=== PATIENT | female | born 1930 | race Caucasian/White ===

== ENCOUNTER 2018-05-04 22:07 | Inpatient (IN) | payer MEDICARE, BC ==
[2018-05-04 23:14] LABS: #Eosinphils 0.2 thou/uL (0.0-0.7); #Lymphocytes 1.7 thou/uL (1.20-3.40); #Monocytes 1.1 thou/uL (0.11-0.59); #Neutrophils 9.8 thou/uL (1.40-6.50); %Basophils 0.1 % (0.0-1.0); %Eosinophils 1.6 % (0.0-10.0); %Lymphocytes 12.9 % (21.0-51.0); %Monocytes 8.6 % (0.0-10.0); %Neutrophils 76.8 % (42.0-75.0); Hemoglobin 11.1 g/dL (12.0-16.0); Mean Corpuscular HGB CONC 31.9 g/dL (32.0-36.0); Mean Corpuscular Hemoglobin 29.4 pg (27.0-31.0); Mean Corpuscular Volume 92.2 fL (78.0-98.0); Mean Platelet Volume 6.6 fL (7.4-10.4); Platelet Count 293 thou/uL (130-400); RBC Distribution Width 11.9 % (11.5-14.5); Red Blood Cell (RBC) Count 3.79 mill/uL (4.20-5.40); White Blood Cell (WBC) Count 12.7 thou/uL (4.8-10.8)
[2018-05-04 23:35] LABS: ALT (SGPT) 15 U/L (8-55); AST (SGOT) 23 U/L (5-34); Albumin 3.8 g/dL (3.4-4.8); Alkaline Phosphatase 87 U/L (40-150); Anion Gap 11 mmol/L (10-20); BUN (Urea Nitrogen) 22 mg/dL (9.8-20.1); Bilirubin, Total 0.3 mg/dL (0.2-1.2); Calc. Creatinine Clearance 0 mL/min (70-130); Calcium 9.2 mg/dL (7.8-10.44); Carbon Dioxide 27 mmol/L (23-31); Chloride 105 mmol/L (98-107); Estimated GFR-MDRD 68; Globulin 3.2 g/dL (2.4-3.5); Glucose 131 mg/dL (83-110); Potassium 4.4 mmol/L (3.5-5.1); Sodium 139 mmol/L (136-145)
--- NOTE | 2018-05-04 23:44 | RAD ---
RIGHT KNEE THREE VIEWS: 05/04/18 HISTORY: Knee injury. Bones are demineralized. There is some mild arthritic changes in the knee without signs of fracture. There is a chondroid type lesion of the distal femoral shaft. This could represent an enchondroma. Th e size raises the possibility of a low grade chondrosarcoma. I do not have any old films for comparis on. IMPRESSION: 1. 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 2. No evidence of fracture. POS: [facility]
--- NOTE | 2018-05-04 23:45 | RAD ---
RIGHT HIP TWO VIEWS: 05/04/18 HISTORY: Fall with hip pain. There is an intertrochanteric fracture of the right hip with associated coxa vara deformity. Old trau ma to the symphysis region is noted. IMPRESSION: Acute intertrochanteric fracture of the right hip. POS: [facility]
[2018-05-05 00:26] LABS: PTT 30.9 SEC (22.9-36.1); Prothrombin Time 12.7 SEC (12.0-14.7)
[2018-05-05] MEDS ORDERED: Morphine 4 MG/ML VIAL ONE (00:39)
[2018-05-05] MEDS ORDERED: Ondansetron PF 4 MG/2 ML Vial ONE ×2 (00:39→15:02)
[2018-05-05] MEDS ORDERED: Morphine 4 MG/ML VIAL SLOW IVP PRN ×2 (01:42→01:55)
[2018-05-05] MEDS ORDERED: Ondansetron PF 4 MG/2 ML Vial IVP PRN ×2 (01:42→01:55)
[2018-05-05] MEDS ORDERED: Sodium Chloride 0.9% 1,000 ML IV SCH (01:45)
[2018-05-05] MEDS ORDERED: traMADol HCl 50 MG TAB PO PRN (01:52)
[2018-05-05] MEDS ORDERED: hydrALAZINE 20 MG/ML VIAL SLOW IVP PRN (01:55)
[2018-05-05] MEDS ORDERED: Ondansetron ODT 4 MG TAB PO PRN (01:55)
[2018-05-05] MEDS ORDERED: Dextrose 50% Abboject 50 ML SYRINGE SLOW IVP PRN (01:55)
[2018-05-05] MEDS ORDERED: Dextrose 5% in Water 1,000 ML IV PRN (01:55)
[2018-05-05 02:04] VITALS: BMI 19.5
[2018-05-05] MEDS: traMADol HCl 50 MG TAB PO SCH ×4 (02:44→20:08)
[2018-05-05 03:51] LABS: Bilirubin Negative (Negative); Blood, Urine Small (Negative); Clarity CLEAR (Clear); Glucose, Urine (Dipstick) Negative (Negative); Leukocyte Moderate (Negative); Nitrite Negative (Negative); Protein, Urine (Dipstick) Negative (Neg-Trace); Specific Gravity, Urine 1.015 (1.002-1.036); pH, Urine 6.5 (5.0-9.0)
[2018-05-05 03:54] LABS: Bacteria/HPF None Seen HPF (None Seen); Hyaline Casts/LPF 4-6 HYALINE CAST LPF (0-3 Hyaline); Pathc Cast-AUWi Flag 1.45 (0-2.49)
--- NOTE | 2018-05-05 03:54 | HP ---
ATTENDING SURGEON: Dr. Calhoun. HISTORY OF PRESENT ILLNESS: An 88-year-old female, had a ground-level fall. Te patient was in her kitchen and not using her walker like she was supposed to, and when she went to turn, slipped and fell. The patient reports right leg pain and right knee pain. Denies loss of consciousness. Denies hitting her head. The patient activated her medical alert immediately. The patient was brought in by EMS with right external rotation and shortening. The patient was evaluated by the ER. The patient with a right intertrochanteric fracture. The patient was given morphine and Zofran in the ER for pain. The patient currently resting supine in no distress. The patient's daughter is at bedside, who states that the patient does live alone and her just recently a few days ago. The patient has caretakers whom come and check on her often and the daughter lives very close by. The daughter does report that she does get confused sometimes. PAST MEDICAL HISTORY: Arthritis, high cholesterol, hypertension, hypothyroidism. The patient had a fall in 2015 with pelvic fracture nonoperative, the patient went to rehab at that time, also back injury nonoperative where she completed rehab. PAST SURGICAL HISTORY: . ALLERGIES: NO KNOWN DRUG ALLERGIES. HOME MEDICATIONS: 1. Acetaminophen 1 g daily. 2. Fosamax 70 mg weekly. 3. Aspirin 81 mg daily. 4. Lipitor 40 mg daily. 5. Atrovent as needed. 6. Celebrex 200 mg. 7. Flonase as needed. 8. Synthroid 75 mcg on Sunday through Sunday, 112 on Sunday. 9. Myrbetriq 50 mcg. 10. Zestril 5 mg p.o. daily. 11. Zoloft 100 mg daily. 12. Zantac twice a day 150. 13. Tylenol PM Extra Strength 2 nightly. 14. Zyrtec daily. 15. Vitamin D daily. REVIEW OF SYSTEMS: GENERAL: Denies any recent illness. Denies any chills or fever. HEENT: Denies any vision changes. Denies neck pain. CARDIOVASCULAR: Denies any chest pain or palpitations or previous cardiovascular history. RESPIRATORY: Denies any cough, shortness of breath, or wheezing. GI: Denies abdominal pain. Denies nausea, vomiting, or diarrhea. The patient does report issues with constipation. GI: Denies any dysuria or frequency. MUSCULOSKELETAL: Complaints of right knee pain and right thigh pain. Denies any back pain. NEUROLOGIC: Denies headache. Denies mental status changes. Denies sensory deficit changes. PHYSICAL EXAMINATION: VITAL SIGNS: Blood pressure 146/77, SpO2 93% on room air, heart rate 91, respirations 16, temperature 98.1. GENERAL: The patient is awake, alert, in no distress; oriented to person, place, and event. HEENT: The patient has a small abrasion under the nose, otherwise head is atraumatic. Pupils equal and reactive at 4 mm. NECK: Trachea is midline. The patient has no neck tenderness. She has full range of motion. SKIN: Skin is dry. No bruises or rashes noted. CARDIOVASCULAR: The patient with regular rate and rhythm. There are no murmurs. RESPIRATORY: Respirations even and unlabored. Chest is symmetrical. Equal breath sounds. There are no wheezes, crackles, or rales. ABDOMEN: Soft, nontender. Active bowel sounds. MUSCULOSKELETAL: The patient with right lower leg shortening and external rotation. Positive +2 pedal pulses bilaterally. The patient moves all extremities and sensation noted in all extremities. The patient does have a small abrasion to the right knee. There is no deformity noted to the knee or swelling. NEUROLOGIC: Cranial nerves are intact. Sensation and strength, intact. LABORATORY DATA: WBC 12.7, RBC 3.79, hemoglobin 11.1, hematocrit 35.0, platelets 293. PT 12.7, INR 1.0, aPTT 30.9. Sodium 139, potassium 4.4, chloride 105, BUN 22, creatinine 0.80, glucose 131, calcium 9.2. AST 23, ALT 15, alkaline phosphatase 87. Troponin less than 0.010. Albumin 7.0. A UA was collected that has not resulted at this time. DIAGNOSTIC DATA: Acute intertrochanteric fracture of the right hip. Chest x-ray, mildly hyperinflated lungs, no acute cardiopulmonary process. Official read is unavailable. EKG shows normal sinus rhythm. There is no ST elevation. ASSESSMENT: 1. Mechanical fall. 2. Acute traumatic pain. 3. Right hip fracture. 4. History of arthritis. 5. History of hypertension. PLAN: We will admit the patient to the Surgical/Ortho Floor. Dr. Perez has already been contacted by the ER provider and was notified. We will take the patient to the OR in the morning. No specific time reported. We will place the patient on pain regimen and bedrest. The patient has been n.p.o. since [address] PT/OT consult, also prepare for placement to rehab. This patient has been discussed with the attending physician. Job ID: [id number]
[2018-05-05 04:04] LABS: Renal Epithelial None Seen HPF (0-3); Transitional Epithelial 0-3 HPF (0-3)
[2018-05-05] MEDS: Lactated Ringer's 1,000 ML IV SCH ×2 (04:07→15:59)
[2018-05-05] MEDS: Acetaminophen 1,000 MG in Premix Bag 1 BAG IVPB SCH ×4 (05:40→23:57)
[2018-05-05] MEDS: Ketorolac Tromethamine 30 MG/ML VIAL IVP SCH ×3 (05:40→17:35)
[2018-05-05 06:28] LABS: #Lymphocytes 1.2 thou/uL (1.20-3.40); #Monocytes 0.9 thou/uL (0.11-0.59); #Neutrophils 8.6 thou/uL (1.40-6.50); %Eosinophils 0.3 % (0.0-10.0); %Lymphocytes 11.3 % (21.0-51.0); %Monocytes 8.6 % (0.0-10.0); %Neutrophils 79.8 % (42.0-75.0); Hemoglobin 10.1 g/dL (12.0-16.0); Mean Corpuscular HGB CONC 33.1 g/dL (32.0-36.0); Mean Corpuscular Hemoglobin 30.4 pg (27.0-31.0); Platelet Count 249 thou/uL (130-400); RBC Distribution Width 11.7 % (11.5-14.5); Red Blood Cell (RBC) Count 3.32 mill/uL (4.20-5.40); White Blood Cell (WBC) Count 10.7 thou/uL (4.8-10.8)
[2018-05-05 06:45] LABS: Anion Gap 12 mmol/L (10-20); BUN (Urea Nitrogen) 21 mg/dL (9.8-20.1); Calc. Creatinine Clearance 46 mL/min (70-130); Calcium 8.7 mg/dL (7.8-10.44); Carbon Dioxide 21 mmol/L (23-31); Chloride 106 mmol/L (98-107); Estimated GFR-MDRD 79; Glucose 122 mg/dL (83-110); Potassium 4.4 mmol/L (3.5-5.1); Sodium 135 mmol/L (136-145)
[2018-05-05] MEDS: Famotidine 20 MG TAB PO SCH ×2 (08:30→20:08)
[2018-05-05] MEDS: Polyethylene Glycol 3350 17 GM Packet PO SCH (08:31)
[2018-05-05] MEDS: Senokot S 8.6-50 MG TAB PO SCH ×2 (08:31→20:08)
[2018-05-05] MEDS ORDERED: Fentanyl 100 MCG/2 ML VIAL ONE (08:41)
[2018-05-05] MEDS ORDERED: Tranexamic Acid 1,000 MG/10 ML VIAL ONE (09:04)
[2018-05-05] MEDS ORDERED: CEFAZOLIN 2 GM/50 ML BAG ONE (09:04)
[2018-05-05] MEDS ORDERED: Sodium Chloride 0.9% 100 ML ONE (09:07)
[2018-05-05] MEDS ORDERED: Levofloxacin 500 mg/D5W 100 ml Premix Bag ONE (09:18)
--- NOTE | 2018-05-05 09:21 | RAD ---
PORTABLE CHEST 1 VIEW: Date: 05/05/18 Time: 0011 hours HISTORY: Chest pain. FINDINGS: Comparison made with exam of 05/26/15. The heart size is normal. The aorta is tortuous. No lobar consolidation, pneumothoraces, nikhil pulmon alisia edema, or pleural effusions are seen. IMPRESSION: No acute process. POS: [facility]
--- NOTE | 2018-05-05 09:25 | RAD ---
FRONTAL RADIOGRAPH PELVIS: Date: 05/05/18 COMPARISON: 07/26/15. HISTORY: Injury, trauma, pain. FINDINGS: There are severe degenerative changes involving bilateral hips with joint space narrowing, subchondra l sclerosis, and osteophyte formation. There are old fractures of the superior and inferior pubic shila i medially bilaterally, and there are multiple incompletely assessed lower lumbar spine fractures, al so which appear stable. There is a new, comminuted, obliquely oriented fracture of the proximal right femur, which is probably subtrochanteric in nature and incompletely assessed on this examination. Th e lesser trochanter appears proximally and medially displaced, and the distal fracture fragment demon strates varus angulation. IMPRESSION: Proximal right femur fracture. POS: [facility]
--- NOTE | 2018-05-05 11:40 | CON ---
DATE OF CONSULTATION: 05/05/2018 CHIEF COMPLAINT: Right hip pain. CONSULTING PHYSICIANS: ER. HISTORY OF PRESENT ILLNESS: Ms. Iqbal is an 88-year-old female, status post fall while walking in her house. Denies loss of conscious or headaches. The patient got up without her walker, slipped and fell on her right hip and complained of right hip pain. The patient's family is at bedside. She lives at home alone with the recent of her . The patient's caretakers are close by. PAST MEDICAL HISTORY: Arthritis, high cholesterol, hypertension, hypothyroidism , history of pelvis fracture. PAST SURGICAL HISTORY: . ALLERGIES: NO KNOWN DRUG ALLERGIES. MEDICATIONS: 1. Tylenol. 2. Fosamax. 3. Aspirin. 4. Lipitor. 5. Atrovent. 6. Celebrex. 7. Flonase. 8. Synthroid. 9. Myrbetriq. 10. Zestril. 11. Zoloft. 12. Zantac. 13. Tylenol p.m. 14. Zyrtec. 15. Vitamin D. SOCIAL HISTORY: Nonsmoker and nondrinker. Recent passing of her . REVIEW OF SYSTEMS: Noncontributory. PHYSICAL EXAMINATION: VITAL SIGNS: The patient's vital signs are; temperature 97.9, pulse rate 100, respiratory rate 18, 92% on room air, and blood pressure 145/76. GENERAL: Alert and oriented female, in no acute distress. EXTREMITIES: Right lower extremity, no skin lesions. External rotated hip with shortening. The patient has brisk cap refill. She has sensation intact L4 through S1 distribution in plantar flexion, dorsiflexion, extendsand flexes her toes. She has pain with internal and external rotation. LABORATORY DATA: The patient's labs show H and H of 10 and 30. INR of 1. She has creatinine of 0.7. She has moderate leukocyte esterase. RADIOGRAPHIC DATA: The patient's radiographs show a right intertrochanteric hip fracture with reverse obliquity pattern. IMPRESSION: Right intertrochanteric hip fracture. ASSESSMENT AND PLAN: The patient was taken the OR today for a right intramedullary nailing with cephalomedullary nail. Discussed with family the risks and benefits of surgery, pain, scar, bleeding, infection, damage to vital structures, nonunion, malunion, failure of procedure, fracture, loss of life or limb. She understands the risks and benefits and understands, she will loose her level of function. I discussed with them the mortality associated with this fracture. The family understands all this and they would like to proceed. We will take her to surgery today. Job ID: [id number] MTDD
[2018-05-05] MEDS ORDERED: CEFAZOLIN/Water 2 GM/20 ML SYRINGE SLOW IVP SCH (13:24)
[2018-05-05] MEDS ORDERED: Glycopyrrolate 0.2 MG/ML 5 ML SYRINGE ONE (15:02)
[2018-05-05] MEDS ORDERED: PROPOFOL 200 MG/20 ML VIAL ONE (15:02)
[2018-05-05] MEDS ORDERED: Lidocaine 1% PF 5 ML VIAL ONE (15:02)
[2018-05-05] MEDS: CEFAZOLIN 2 GM/50 ML-DEXTROSE 2 GM in Premix Bag 1 BAG IVPB SCH (17:56)
[2018-05-05] MEDS: Nitrofurantoin Monohyd/M-Cryst 100 MG CAP PO SCH (20:08)
--- NOTE | 2018-05-05 21:22 | PRG ---
DATE OF SERVICE: 05/05/2018 SUBJECTIVE: An 88-year-old female with ground level fall. Postop day zero. The patient is awake, alert. Pain is well controlled at this time. The patient is tolerating a regular diet at this time. The patient voices no concerns other than she typically takes 2 Tylenol PM for sleep. OBJECTIVE: VITAL SIGNS: Temperature 97.9, pulse 76, respirations 16, SpO2 of 95% on room air. Blood pressure 126/60. GENERAL: The patient awake, alert, in no distress. RESPIRATORY: Respirations even, nonlabored, symmetrical, no distress. ABDOMEN: Soft, nontender. Active bowel sounds. MUSCULOSKELETAL: Mild pain to right hip area. Positive distal pulses and sensation. Able to move all extremities. NEUROLOGIC: Cranial nerves intact. The patient has normal strength. LABORATORY DATA: WBC 10.7, RBC 3.32, hemoglobin 10.1, hematocrit 30.5, platelets 249. Sodium 135, potassium 4.4, chloride 106, CO2 of 21, BUN 21, creatinine 0.70, GFR 79, glucose 122, calcium 8.7. The patient with trace ketones in her urine, moderate leukocyte esterase, urine wbc's 7 to 10, squamous cells high. The patient with Hyaline cast. ASSESSMENT AND PLAN: 1. Ground level fall. 2. Right hip fracture, postop day zero open reduction and internal fixation. 3. Acute traumatic pain. 4. History of arthritis and hypertension. 5. Urinary tract infection. PLAN: We will leave Rodriguez overnight and monitor urine output. We will continue IV fluids overnight. We will place the patient on a p.o. pain regimen. PT/OT has been consulted and will work with the patient starting tomorrow. Continue a regular diet. We will order melatonin for sleep instead of Tylenol PM that the patient usually takes since the patient is getting pain medication and Tylenol already. The patient started on antibiotics for UTI. Plan has been discussed with the attending surgeon. Job ID: [id number]
[2018-05-05] MEDS: Ibuprofen 600 MG TAB PO SCH (21:28)
[2018-05-05] MEDS: Melatonin 3 MG TAB PO PRN (21:28)
--- NOTE | 2018-05-05 22:49 | OP ---
DATE OF PROCEDURE: 05/05/2018 PREOPERATIVE DIAGNOSIS: Right intertrochanteric with subtrochanteric extension 4-part proximal femur fracture. PROCEDURE: Cephallomedullary nailng, TFNA POCKETS AND PIECES NECKTIE OPERATOR: Dylan. ANESTHESIA: Rogelio. The patient received a general endotracheal intubation. ESTIMATED BLOOD LOSS: 100 mL. TOURNIQUET TIME: None. IMPLANTS: Synthes 11 x 130-degree x 400 mm TFNA nail, a 95 mm TFNA screw, and a 5 mm distal locking screw. ANTIBIOTICS: Ancef 2 g, 500 mg of Levaquin, and TXA 1 g. COMPLICATIONS: None. INDICATIONS FOR PROCEDURE: Ms. Iqbal is a pleasant 88-year-old female, status post ground level fall with a right proximal femur fracture and subtrochanteric extension. I discussed the risks and benefits of surgery, pain, scar, bleeding, infection, damage to vital structures, decreased range of motion and strength, continued pain despite surgical intervention, loss of life or limb, and failure of procedure. The patient understood all these risks and benefits and elected to proceed. DESCRIPTION OF PROCEDURE: Time-out was performed. The patient's right lower extremity as the operative site based on site, consents, and markings. After time-out, the patient's right leg was put in traction. I made a posterior oblique incision just proximal to the greater tip down to the greater trochanter, felt based on AP and lateral radiographs, the [id number]. We then placed our starting point. We then opened the reamer and reamed with opening reamer. We then passed our guidewire. Noticed that there was a little apex anterior deformity, which made a small stab incision and used a Librado to push down the anterior fragment wall for reduction for reaming. We went distally. 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 We therefore used a finger to help to push through the enchondroma and placed it more in a center-center position. After placing it in center-center position, we reamed up to an 11, felt we got good overall alignment and positioning. We then removed, placed our implant and after it measured 11 x 400, felt we had a good stable positioning. It helped to reduce the fracture. Testing our position, got the gripping of the metaphysis when we reamed, measured for 95 and placed 95. We compressed and down to allow for sliding. We let the traction off the femur. We then took pictures. We were happy with the alignment of the proximal femur. We moved distally. We placed a distal screw in the static position with two cortices, and we made a small stab incision. We came back. We washed and closed all the holes for screws as well as our stab incision and our entry nails, positioned with O2 and claudia. The patient will be admitted to the hospital. She will receive antibiotics for 24 hours. She will be weightbearing as tolerated. We will follow inhouse. Job ID: [id number] MTDD
[2018-05-06] MEDS: Lactated Ringer's 1,000 ML IV SCH
[2018-05-06] MEDS: traMADol HCl 50 MG TAB PO SCH ×3 (02:30→17:08)
[2018-05-06] MEDS: CEFAZOLIN 2 GM/50 ML-DEXTROSE 2 GM in Premix Bag 1 BAG IVPB SCH (02:31)
[2018-05-06] MEDS: Ibuprofen 600 MG TAB PO SCH ×3 (05:59→21:13)
[2018-05-06] MEDS: Acetaminophen 1,000 MG in Premix Bag 1 BAG IVPB SCH (05:59)
[2018-05-06 06:40] LABS: Anion Gap 9 mmol/L (10-20); BUN (Urea Nitrogen) 22 mg/dL (9.8-20.1); Calc. Creatinine Clearance 37 mL/min (70-130); Calcium 8.5 mg/dL (7.8-10.44); Carbon Dioxide 25 mmol/L (23-31); Chloride 104 mmol/L (98-107); Estimated GFR-MDRD 61; Glucose 114 mg/dL (83-110); Magnesium 1.7 mg/dL (1.6-2.6); Phosphorus 3.5 mg/dL (2.3-4.7); Potassium 4.1 mmol/L (3.5-5.1); Sodium 134 mmol/L (136-145)
[2018-05-06 07:35] LABS: Hemoglobin 6.9 g/dL (12.0-16.0); Mean Corpuscular HGB CONC 32.8 g/dL (32.0-36.0); Mean Corpuscular Hemoglobin 30.4 pg (27.0-31.0); Mean Corpuscular Volume 92.6 fL (78.0-98.0); Platelet Count 203 thou/uL (130-400); RBC Distribution Width 11.6 % (11.5-14.5); Red Blood Cell (RBC) Count 2.28 mill/uL (4.20-5.40); White Blood Cell (WBC) Count 7.3 thou/uL (4.8-10.8)
[2018-05-06] MEDS: Nitrofurantoin Monohyd/M-Cryst 100 MG CAP PO SCH ×2 (08:40→21:13)
[2018-05-06] MEDS: Famotidine 20 MG TAB PO SCH ×2 (08:41→21:13)
[2018-05-06] MEDS: Polyethylene Glycol 3350 17 GM Packet PO SCH (08:41)
[2018-05-06] MEDS: Senokot S 8.6-50 MG TAB PO SCH ×2 (08:41→21:14)
--- NOTE | 2018-05-06 08:57 | RAD ---
RIGHT HIP 2 VIEWS: Date: 05/05/18 HISTORY: Open reduction and internal fixation right hip, right femur fracture. FINDINGS/IMPRESSION: Three spot fluoroscopic intraoperative images of the right hip demonstrating interval reduction and i nternal fixation of the proximal femoral fracture since the previous day's exam. POS: [facility]
[2018-05-06] MEDS ORDERED: Alendronate Sodium 70 mg Tablet PO SCH (09:30)
[2018-05-06] MEDS ORDERED: Levothyroxine Sodium 112 MCG TAB PO SCH (11:00)
[2018-05-06] MEDS: Acetaminophen 500 MG TAB PO SCH ×2 (12:16→18:01)
--- NOTE | 2018-05-06 18:02 | PRG ---
DATE OF SERVICE: 05/06/2018 SUBJECTIVE: This is an 88-year-old female with a ground level fall. She is postop day #1, status post ORIF of the right hip. The patient is awake and alert in bed, and pain is well controlled at this time. The patient continues to tolerate a regular diet. The patient voices no concerns at this time. OBJECTIVE: VITAL SIGNS: Temperature 98.5, respirations 16, SpO2 96% on room air, and blood pressure 110/60. GENERAL: The patient is awake, alert, sitting up in bed, in no distress. RESPIRATORY: Respirations even nonlabored, symmetrical, no distress. ABDOMEN: Soft, nontender. Active bowel sounds. MUSCULOSKELETAL: Moves all extremities. Distal pedal pulses. Normal sensation. NEUROLOGIC: No deficits noted. LABORATORY DATA: White blood count 7.3, RBC 2.28, hemoglobin 6.9, hematocrit 21.1, and platelet 203. Sodium 134, potassium 4.1, chloride 104, CO2 25, BUN 22, creatinine 0.87, GFR 61, glucose 114, calcium 8.5, phosphorus 3.5, and magnesium 1.7. ASSESSMENT: 1. Ground level fall. 2. Right hip fracture, postop day 1 open reduction and internal fixation. 3. Acute traumatic pain. 4. History of arthritis and hypertension. 5. Urinary tract infection. PLAN: We will transfuse 1 unit of packed red blood cells. The patient started on iron and vitamin C. We will repeat H and H this evening. Continue the patient's Macrobid for UTI. Continue PT/OT. Case Management to help with placement and rehab. We will continue the patient's pain regimen. The patient has been discussed with the attending surgeon. Job ID: [id number]
[2018-05-06 18:07] LABS: Hemoglobin 9.1 g/dL (12.0-16.0)
[2018-05-06] MEDS ORDERED: Non-Formulary Item 1 EACH (Zantac 150 MG) PO SCH (21:00)
[2018-05-06] MEDS: Ascorbic Acid 500 mg Chewable Tablet PO SCH (21:13)
[2018-05-06] MEDS: Magnesium Oxide 400 MG TAB PO SCH (21:14)
[2018-05-06] MEDS: Melatonin 3 MG TAB PO PRN (22:03)
[2018-05-07] MEDS: Acetaminophen 500 MG TAB PO SCH ×4 (00:05→17:45)
[2018-05-07] MEDS: Levothyroxine Sodium 75 MCG TAB PO SCH (05:26)
[2018-05-07] MEDS: Ibuprofen 600 MG TAB PO SCH ×3 (05:26→21:08)
[2018-05-07 05:57] LABS: #Eosinphils 0.5 thou/uL (0.0-0.7); #Lymphocytes 1.6 thou/uL (1.20-3.40); #Monocytes 0.8 thou/uL (0.11-0.59); #Neutrophils 3.6 thou/uL (1.40-6.50); %Basophils 0.7 % (0.0-1.0); %Eosinophils 7.5 % (0.0-10.0); %Monocytes 12.7 % (0.0-10.0); Hemoglobin 8.5 g/dL (12.0-16.0); Mean Corpuscular HGB CONC 33.6 g/dL (32.0-36.0); Mean Corpuscular Volume 92.3 fL (78.0-98.0); Mean Platelet Volume 7.2 fL (7.4-10.4); Platelet Count 186 thou/uL (130-400); RBC Distribution Width 11.8 % (11.5-14.5); Red Blood Cell (RBC) Count 2.73 mill/uL (4.20-5.40); White Blood Cell (WBC) Count 6.5 thou/uL (4.8-10.8)
[2018-05-07 06:18] LABS: Anion Gap 10 mmol/L (10-20); BUN (Urea Nitrogen) 16 mg/dL (9.8-20.1); Calc. Creatinine Clearance 47 mL/min (70-130); Calcium 8.4 mg/dL (7.8-10.44); Carbon Dioxide 25 mmol/L (23-31); Chloride 108 mmol/L (98-107); Estimated GFR-MDRD 81; Glucose 95 mg/dL (83-110); Magnesium 1.8 mg/dL (1.6-2.6); Phosphorus 2.9 mg/dL (2.3-4.7); Sodium 139 mmol/L (136-145)
[2018-05-07] MEDS: Polyethylene Glycol 3350 17 GM Packet PO SCH (08:53)
[2018-05-07] MEDS: Fluticasone Propionate Nasal Spray 16 gm Bottle NASAL SCH (08:53)
[2018-05-07] MEDS: Senokot S 8.6-50 MG TAB PO SCH ×2 (08:54→20:15)
[2018-05-07] MEDS: Ascorbic Acid 500 mg Chewable Tablet PO SCH ×2 (08:54→20:14)
[2018-05-07] MEDS: Magnesium Oxide 400 MG TAB PO SCH ×2 (08:54→20:14)
[2018-05-07] MEDS: Atorvastatin Calcium 40 MG TAB PO SCH (08:54)
[2018-05-07] MEDS: Lisinopril 5 MG TAB PO SCH (08:54)
[2018-05-07] MEDS: Famotidine 20 MG TAB PO SCH ×2 (08:54→20:14)
[2018-05-07] MEDS: Ferrous Sulfate 325 MG TAB PO SCH ×2 (08:54→17:46)
[2018-05-07] MEDS: Nitrofurantoin Monohyd/M-Cryst 100 MG CAP PO SCH ×2 (08:54→20:15)
--- NOTE | 2018-05-07 14:23 | PRG ---
DATE OF SERVICE: 05/07/2018 SUBJECTIVE: The patient is status post open reduction and internal fixation of a right hip fracture. She is currently postop day #2. She has had no issues overnight. States her pain is controlled. She is tolerating a diet. The patient did receive 1 unit of packed red blood cells yesterday for hemoglobin of 6.9. The patient has worked briefly with physical therapy today and is expected to work again this afternoon. PHYSICAL EXAMINATION: VITAL SIGNS: Temperature is 98.4, heart rate 90, blood pressure 174/77, respirations 14, oxygen saturation 93% on room air. GENERAL: The patient is resting comfortably in bed. She is awake, alert, oriented, and appropriate. HEENT: Unremarkable. LUNGS: Clear to auscultation with good inspiratory and expiratory effort. HEART: Regular rate and rhythm. ABDOMEN: Soft, flat, nontender with active bowel sounds. EXTREMITIES: Neurovascularly intact x4. LABORATORY FINDINGS: White blood cell count 6.5, hemoglobin 8.5, hematocrit 25.2, platelets 186. Sodium 139, potassium 4.0, chloride 108, CO2 of 25, BUN 16, creatinine 0.68, glucose 95, magnesium 1.8. Phosphorus 2.9. There are no radiographs reviewed this morning. ASSESSMENT: 1. Status post ground level fall. 2. Status post open reduction and internal fixation of right hip fracture. PLAN: Plan will be to continue supportive care, physical and occupational therapy. Repeat labs one more time tomorrow. Work with Case Management on placement, and the patient is also under treatment for a urinary tract infection, which should complete her course of antibiotics during this hospital stay. The evaluation and examination were done with Dr. Calhoun during rounds this morning. Job ID: [id number]
[2018-05-07] MEDS: Melatonin 3 MG TAB PO PRN (20:15)
--- NOTE | 2018-05-07 22:42 | HP ---
CHIEF COMPLAINT: Right hip pain. HISTORY OF PRESENT ILLNESS: Ms. Iqbal is an 88-year-old woman, who fell at home, landing on her right side. She had an intertrochanteric right femur fracture underwent ORIF by Orthopedics last night and I saw the patient on morning rounds with Stefan Kumar, Trauma PA and Verna Pruitt, Trauma Nurse Practitioner. For full details, please see Sonal's note, the details of which I have confirmed. The patient denies any lightheadedness or dizziness preceding her fall and states that she simply lost her footing because she slipped and was not using her walker. She denies loss of consciousness or amnesia to the event. She does live alone and her family reports some episodes of confusion. She has multiple medical problems, which are managed on medication and her long list of medications was reviewed. REVIEW OF SYSTEMS: Negative except for right hip pain, which she states is much better than it was before the surgery. Labs and x-rays are reviewed and I agree with the written report. ASSESSMENT: Status post repair of right intertrochanteric femur fracture. The patient is doing well overall and needs to work with Physical Therapy. She does live alone since her recently and may need placement at least for short-term rehab or possibly snf placement depending on her functional status. She is quite frail and did receive 1 unit transfusion for a postoperative hemoglobin of 6.9. Other labs were stable. We will watch her carefully over the next few days as she recovers and get her up to work with Physical Therapy as soon as possible. Job ID: [id number]
[2018-05-08] MEDS: Acetaminophen 500 MG TAB PO SCH ×5 (00:01→23:40)
[2018-05-08] MEDS: Ibuprofen 600 MG TAB PO SCH ×3 (05:15→21:10)
[2018-05-08] MEDS: Levothyroxine Sodium 75 MCG TAB PO SCH (05:15)
[2018-05-08 06:30] LABS: #Eosinphils 0.4 thou/uL (0.0-0.7); #Lymphocytes 1.4 thou/uL (1.20-3.40); #Monocytes 0.9 thou/uL (0.11-0.59); #Neutrophils 4.6 thou/uL (1.40-6.50); %Basophils 0.2 % (0.0-1.0); %Eosinophils 5.2 % (0.0-10.0); %Lymphocytes 19.6 % (21.0-51.0); %Monocytes 12.1 % (0.0-10.0); Hemoglobin 8.8 g/dL (12.0-16.0); Mean Corpuscular HGB CONC 33.4 g/dL (32.0-36.0); Mean Corpuscular Hemoglobin 30.8 pg (27.0-31.0); Mean Platelet Volume 6.7 fL (7.4-10.4); Platelet Count 232 thou/uL (130-400); RBC Distribution Width 11.8 % (11.5-14.5); Red Blood Cell (RBC) Count 2.87 mill/uL (4.20-5.40); White Blood Cell (WBC) Count 7.2 thou/uL (4.8-10.8)
[2018-05-08] MEDS: Polyethylene Glycol 3350 17 GM Packet PO SCH (08:34)
[2018-05-08] MEDS: Famotidine 20 MG TAB PO SCH ×2 (08:34→21:09)
[2018-05-08] MEDS: Ferrous Sulfate 325 MG TAB PO SCH ×2 (08:35→17:44)
[2018-05-08] MEDS: Ascorbic Acid 500 mg Chewable Tablet PO SCH ×2 (08:35→21:10)
[2018-05-08] MEDS: Atorvastatin Calcium 40 MG TAB PO SCH (08:35)
[2018-05-08] MEDS: Magnesium Oxide 400 MG TAB PO SCH ×2 (08:35→21:09)
[2018-05-08] MEDS: Senokot S 8.6-50 MG TAB PO SCH ×2 (08:35→21:10)
[2018-05-08] MEDS: Lisinopril 5 MG TAB PO SCH (08:36)
[2018-05-08] MEDS: Nitrofurantoin Monohyd/M-Cryst 100 MG CAP PO SCH ×2 (08:36→21:09)
[2018-05-08] MEDS: Fluticasone Propionate Nasal Spray 16 gm Bottle NASAL SCH (08:36)
--- NOTE | 2018-05-08 15:49 | PRG ---
DATE OF SERVICE: 05/08/2018 SUBJECTIVE: The patient remains on the surgical floor. She is status post ground level fall, in which she sustained a right hip fracture. She has undergone open reduction and internal fixation of same. She is currently postop day #3. The patient had an episode of emesis this morning when trying to work with physical therapy. She is also noted to have not had her Rodriguez removed, so we will have this discontinued this morning. Otherwise, the patient had no issues overnight. We are awaiting final determination of placement. PHYSICAL EXAMINATION: VITAL SIGNS: Temperature is 98.3, heart rate 97, blood pressure 151/88, respirations 16, oxygen saturation 93% on room air. GENERAL: The patient is currently sleeping. Her daughter relays that she was awake and alert when she was working with therapy and then had her bout of emesis. She was put back in the bed and has been resting since then. Of note, prior to this dictation, nurses relayed that the patient was able to be up in the chair at bedside for approximately 30 to 45 minutes. HEENT: Unremarkable. LUNGS: Clear to auscultation. HEART: Regular rate and rhythm. ABDOMEN: Soft and nondistended with active bowel sounds. EXTREMITIES: Neurovascularly intact x4. Postop dressing is clean, dry, and intact. LABORATORY FINDINGS: White blood cell count 7.2, hemoglobin 8.8, hematocrit 26.4, platelets 232. Sodium 139, potassium 4.0, chloride 108, CO2 of 25, BUN 16, creatinine 0.68, glucose 95, magnesium 1.8, phosphorus 2.9. There are no radiographs reviewed this morning. ASSESSMENT: 1. Status post ground level fall. 2. Status post open reduction and internal fixation of right hip fracture. PLAN: Plan will be to continue supportive care, physical and occupational therapy and await final placement decision, who will discontinue the Rodriguez this afternoon and also add lactulose to her bowel regimen. Job ID: [id number]
[2018-05-08] MEDS: Melatonin 3 MG TAB PO PRN (21:10)
[2018-05-09] MEDS: Ibuprofen 600 MG TAB PO SCH (05:06)
[2018-05-09] MEDS: Levothyroxine Sodium 75 MCG TAB PO SCH (05:06)
[2018-05-09] MEDS: Acetaminophen 500 MG TAB PO SCH ×2 (05:06→11:04)
[2018-05-09] MEDS: Atorvastatin Calcium 40 MG TAB PO SCH (09:19)
[2018-05-09] MEDS: Polyethylene Glycol 3350 17 GM Packet PO SCH (09:19)
[2018-05-09] MEDS: Senokot S 8.6-50 MG TAB PO SCH (09:20)
[2018-05-09] MEDS: Magnesium Oxide 400 MG TAB PO SCH (09:20)
[2018-05-09] MEDS: Ferrous Sulfate 325 MG TAB PO SCH (09:20)
[2018-05-09] MEDS: Ascorbic Acid 500 mg Chewable Tablet PO SCH (09:20)
[2018-05-09] MEDS: Lisinopril 5 MG TAB PO SCH (09:20)
[2018-05-09] MEDS: Famotidine 20 MG TAB PO SCH (09:21)
[2018-05-09] MEDS: Fluticasone Propionate Nasal Spray 16 gm Bottle NASAL SCH (09:21)
[2018-05-09 10:53] VITALS: BP 149/78; TEMP 98.3
--- NOTE | 2018-05-09 19:58 | DIS ---
DATE OF ADMISSION: 05/05/2018 DATE OF DISCHARGE: 05/09/2018 ADMISSION DIAGNOSES: 1. Status post fall. 2. Right hip fracture. CONSULTATIONS: Orthopedics, Dr. Perez. PROCEDURE: Cephalomedullary nailing, TFNA. SUMMARY: The patient is an 88-year-old woman, who reportedly had a fall at home, was brought to the emergency department, underwent evaluation and examination and was noted to have the above injury. The patient will be taken to the operating room the following day with Dr. Perez to undergo her above procedure, which she tolerated well. Over the next few days, she would work with Physical and Occupational Therapy and will be progressing slowly and also had a delay in her stay here due to the holidays, but was eventually able to be transferred to [facility] to continue care. At the time of discharge, the patient again was working with Physical and Occupational Therapy. Her pain was controlled. She was tolerating a diet. Her bowel and bladder function had returned. The patient will follow up with Dr. Perez in 2 weeks or sooner as needed. The patient may follow up with the Trauma Clinic if needed. Job ID: [id number]
[2018-05-09] MEDS ORDERED: Aspirin 81 mg Enteric Coated Tablet PO SCH (21:00)
--- NOTE | 2018-05-10 15:35 | EKG ---
Test Reason : Blood Pressure : / mmHG Vent. Rate : 087 BPM Atrial Rate : 085 BPM P-R Int : 000 ms QRS Dur : 078 ms QT Int : 380 ms P-R-T Axes : 000 009 -12 degrees QTc Int : 457 ms Accelerated Junctional rhythm Abnormal ECG Confirmed by SINDY PAIGE ([id number]), market editor SANTOS STOLL ([id number]) on 05/10/2018 3:34:52 PM Referred By: Confirmed By:SINDY PAIGE
== END 2018-05-09 11:32 | DRG 481 ==
LOC: ERS 22:07 → SURG A 05-05 00:36
PROVIDERS: ADMIT Surgery; ATTEND Surgery
PROC: 0QS606Z Reposition Right Upper Femur with Intramedullary Internal Fixation Device, Open Approach (ICD-10-PCS; principal; 2018-05-05)
DX: S72.141A Displaced intertrochanteric fracture of right femur, initial encounter for closed fracture (principal); N39.0 Urinary tract infection, site not specified; W19.XXXA Unspecified fall, initial encounter; Y92.009 Unspecified place in unspecified non-institutional (private) residence as the place of occurrence of the external cause; M19.90 Unspecified osteoarthritis, unspecified site; I10 Essential (primary) hypertension; E03.9 Hypothyroidism, unspecified; E78.00 Pure hypercholesterolemia, unspecified; Z79.82 Long term (current) use of aspirin
CPT/HCPCS: 36415; 36430; 71045; 72170; 76001; 80048; 80053; 81003; 81015; 83735; 84100; 84484; 85025; 85027; 85610; 85730; 86850; 86900; 86901; 87086; 93005; 96374; 96375; C1713; C1769; G8978-GP-CM; G8979-GP-CK; G8987-GO-CL; G8988-GO-CJ; J0131; J1885; J1956; J2001; J2270; J2405; J2704; J3010; J7050; P9016

== ENCOUNTER 2018-08-14 09:28 | Emergency (ER) | payer MEDICARE, BC ==
[2018-08-14 10:24] LABS: Bilirubin Negative (Negative); Blood, Urine Negative (Negative); Clarity CLOUDY (Clear); Glucose, Urine (Dipstick) Negative (Negative); Leukocyte Large (Negative); Nitrite Negative (Negative); Protein, Urine (Dipstick) Negative (Neg-Trace); Specific Gravity, Urine 1.009 (1.002-1.036); Urobilinogen 0.2 mg/dL (0.2-1.0); pH, Urine 6.5 (5.0-9.0)
[2018-08-14 10:26] LABS: Hyaline Casts/LPF 4-6 HYALINE CAST LPF (0-3 Hyaline); Pathc Cast-AUWi Flag 0.68 (0-2.49); RBC/HPF 0-3 HPF (0-3); Squamous Epithelial None Seen HPF (0-3)
[2018-08-14 10:41] LABS: Bacteria/HPF 2+ HPF (None Seen); Yeast-All Forms None Seen HPF (None Seen)
[2018-08-14 10:44] LABS: #Eosinphils 0.1 thou/uL (0.0-0.7); #Lymphocytes 1.4 thou/uL (1.20-3.40); #Monocytes 0.6 thou/uL (0.11-0.59); #Neutrophils 4.4 thou/uL (1.40-6.50); %Basophils 0.7 % (0.0-1.0); %Eosinophils 1.7 % (0.0-10.0); %Lymphocytes 20.6 % (21.0-51.0); %Monocytes 9.6 % (0.0-10.0); %Neutrophils 67.5 % (42.0-75.0); Hemoglobin 12.7 g/dL (12.0-16.0); Mean Corpuscular HGB CONC 32.5 g/dL (32.0-36.0); Mean Corpuscular Hemoglobin 30.7 pg (27.0-31.0); Mean Corpuscular Volume 94.5 fL (78.0-98.0); Mean Platelet Volume 6.7 fL (7.4-10.4); Platelet Count 245 thou/uL (130-400); Red Blood Cell (RBC) Count 4.16 mill/uL (4.20-5.40); White Blood Cell (WBC) Count 6.6 thou/uL (4.8-10.8)
[2018-08-14 11:10] LABS: ALT (SGPT) 12 U/L (8-55); AST (SGOT) 19 U/L (5-34); Albumin 3.7 g/dL (3.4-4.8); Alkaline Phosphatase 81 U/L (40-150); Anion Gap 11 mmol/L (10-20); BUN (Urea Nitrogen) 22 mg/dL (9.8-20.1); Bilirubin, Total 0.2 mg/dL (0.2-1.2); Calc. Creatinine Clearance 0 mL/min (70-130); Calcium 9.3 mg/dL (7.8-10.44); Carbon Dioxide 24 mmol/L (23-31); Chloride 104 mmol/L (98-107); Estimated GFR-MDRD 55; Globulin 2.8 g/dL (2.4-3.5); Glucose 105 mg/dL (83-110); Potassium 4.5 mmol/L (3.5-5.1); Protein, Total 6.5 g/dL (6.0-8.3); Sodium 134 mmol/L (136-145)
[2018-08-14] MEDS ORDERED: Nitrofurantoin Monohyd/M-Cryst 100 MG CAP PO SCH (11:15)
== END 2018-08-14 11:50 ==
LOC: ERS 09:28
DX: N30.00 Acute cystitis without hematuria (principal); E78.00 Pure hypercholesterolemia, unspecified; E03.9 Hypothyroidism, unspecified
CPT/HCPCS: 36415; 51701; 80053; 81003; 81015; 84484; 85025; 93005; A4353